=== PATIENT | male | born 1955 | race Caucasian/White ===

== ENCOUNTER 2017-05-09 06:42 | Day surgery (SDC) | payer BC, OTHER ==
[2017-05-01 08:48] VITALS: BMI 29.0
--- NOTE | 2017-05-01 09:19 | PAT Medication Instructions ---
Service Date May 01, 2017. Current Home Medication List Ascorbic Acid (Vitamin C), 500 MG PO QAM Ibuprofen (Advil), 400 MG PO prn Medication Instructions For Your Scheduled Surgery - Hold the following medications 2 weeks prior to surgery: Ibuprofen (Advil), 400 MG PO prn - Hold the following medications the morning of surgery: Ascorbic Acid (Vitamin C), 500 MG PO QAM If you have any questions please call us at [phone] or [phone] or [phone]
[2017-05-01 10:27] LABS: BASO % 0.4 %; BASO ABS # 0.03 K/uL (0-0.2); EOS % 0.6 %; EOS ABS # 0.05 K/uL (0-0.5); HEMATOCRIT 44.4 % (42-52); HEMOGLOBIN 14.7 g/dL (14.0-18.0); IG# 0.02 K/uL (0.00-0.02); LYMPH % 21.2 %; LYMPH ABS # 1.68 K/uL (1.2-3.4); MEAN CELL VOLUME 101.6 fL (80-100); MEAN CORPUSCULAR HEMOGLOBIN 33.6 pg (25-34); MEAN CORPUSCULAR HGB CONC 33.1 g/dl (32-36); MEAN PLATELET VOLUME 11.2 fL (7.4-10.4); MONO % 6.6 %; MONO ABS # 0.52 K/uL (0.11-0.59); NEUT % 70.9 %; NEUT ABS # 5.63 K/uL (1.4-6.5); PLATELET COUNT 218 K/uL (130-400); RED CELL DISTRIBUTION WIDTH CV 12.6 % (11.5-14.5); RED CELL DISTRIBUTION WIDTH SD 46.9 fL (36.4-46.3); WHITE BLOOD COUNT 7.93 K/uL (4.8-10.8)
[2017-05-01 10:32] LABS: CALCIUM 9.2 mg/dl (8.5-10.1); CREATININE 1.04 mg/dl (0.60-1.40); POTASSIUM 5.3 mmol/L (3.5-5.1)
[~2017-05-09] VITALS: Ht 180.3 cm; Wt 96.5 kg
[~2017-05-09 06:42] MED LIST: ASCO500T3 PO; CEFAZOLIN 2000MG IV PUSH 10 ML IV SCH; IBUP-1050 PO; LACTATED RINGER'S 1000ML 1,000 ML IV SCH
[2017-05-09 07:18] VITALS: BP 156/88; PULSE 68; TEMP 36.7; O2SAT 96; Ht 180.3 cm; Wt 96.5 kg
[2017-05-09] MEDS ORDERED: EpHEDrine SULFATE INJ 50 MG/ML AMP IV PRN (07:30)
[2017-05-09] MEDS ORDERED: ONDANSETRON INJ 2 MG/ML 2 ML VIAL IV PRN ×2 (07:30→10:00)
[2017-05-09] MEDS ORDERED: FENTANYL CITRATE INJ 50 MCG/1 ML 2 ML VIAL IV PRN (07:30)
[2017-05-09] MEDS ORDERED: ATROPINE SULFATE 0.1 MG/ML 5ML SYR IV PRN (07:30)
[2017-05-09] MEDS ORDERED: HYDROmorphone INJ 1 MG/ML SYR IV PRN (07:30)
[2017-05-09] MEDS ORDERED: PROPOFOL IV EMULSION 10 MG/ML 20 ML VIAL IV ONE (07:36)
[2017-05-09] MEDS ORDERED: LIDOCAINE HCL 2% 2 ML VIAL (20MG/ML) ONE (07:36)
[2017-05-09] MEDS ORDERED: ROCURONIUM BROMIDE 10 MG/ML 5 ML VIAL IV ONE (07:36)
[2017-05-09] MEDS ORDERED: MIDAZOLAM HCL 1 MG/ML 2ML VIAL ONE (07:37)
[2017-05-09] MEDS ORDERED: FENTANYL CITRATE INJ 50 MCG/1 ML 2 ML VIAL ONE ×2 (07:37→09:12)
[2017-05-09] MEDS ORDERED: BUPIVACAINE 0.5 % 5 MG/1 ML MPF 30ML VIAL ONE (08:22)
--- NOTE | 2017-05-09 08:32 | History & Physical Bridge Note ---
H&P Re-Evaluation Bridge Note: I have examined the patient, reviewed the History & Physical and in the interval since the performance of the History & Physical I have noted the following changes of clinical significance: No changes noted
[2017-05-09] MEDS ORDERED: GLYCOPYRROLATE INJ 0.2 MG/ML VIAL ONE (09:05)
[2017-05-09] MEDS ORDERED: SUCCINYLCHOLINE CHLORIDE 20 MG/ML 10 ML VIAL IV ONE (09:05)
[2017-05-09] MEDS ORDERED: DEXAMETHASONE SOD INJ 4 MG/ML VIAL ONE (09:05)
[2017-05-09] MEDS ORDERED: NEOSTIGMINE METHYLSULFATE 5 MG/5 ML SYR ONE (09:05)
[2017-05-09] MEDS ORDERED: ONDANSETRON INJ 2 MG/ML 2 ML VIAL ONE (09:05)
[2017-05-09] MEDS ORDERED: KETOROLAC TROMETHAMINE 30 MG/ML VIAL ONE (09:05)
--- NOTE | 2017-05-09 09:50 | [facility] Operative Report ---
Operative Report Operative Date May 09, 2017. Pre-Operative Diagnosis Right Inguinal Hernia Post-Operative Diagnosis Right Inguinal Hernia- indirect defect Procedure(s) Performed Laparoscopic Right Inguinal Hernia Repair with Mesh Surgeon Sock Lining Examiner Surgeon(s) Dre Maravilla PA-C Estimated Blood Loss 5 cc Findings used Lg 3DMax mesh small femoral lipoma Specimens none per surgeon Anesthesia gen Complication(s) None Disposition Recovery Room / PACU I attest to the content of the Intraoperative Record and any orders documented therein. Any exceptions are noted below.
--- NOTE | 2017-05-09 09:54 | Discharge Instructions ---
Discharge Instructions Date of Service May 09, 2017. Visit Reason for Visit: Right Inguinal Hernia Discharge Discharge Diagnosis / Problem: Rt inguinal hernia Discharge Goals Goal(s): Decrease discomfort, Improve function, Improve disease control Activity Recommendations Activity Limitations: as noted below Lifting Limitations: no more than 25 pounds Exercise/Sports Limitations: until after follow-up appointment May Resume Sexual Activity: when tolerated Shower/Bathe: tomorrow Driving or Machine Use: resume 3 days after discharge Anesthesia . Post Anesthesia Instructions: If you have had General Anesthesia or IV Sedation: * Do not drive today. * Resume driving when surgeon permits. * Do not make important decisions or sign legal documents today. * Call surgeon for: 1. Temperature elevations greater than 101 degrees F. 2. Uncontrollable pain. 3. Excessive bleeding. 4. Persistent nausea and vomiting. 5. Medication intolerance (nausea, vomiting or rash). * For nausea and vomiting use only clear liquids such as: tea, soda, bouillon until nausea subsides, then gradually increase diet as tolerated. * If you have any concerns or questions, call your surgeon's office. If physician is unavailable and it is an emergency, call 911 or go to the nearest emergency room. . Instructions / Follow-Up Instructions / Follow-Up SPECIAL CARE INSTRUCTIONS: * Cover incisions and change daily for comfort/drainage. May leave uncovered with dermabond * Avoid constipation- may use Senokot S and Milk of magnesia twice daily as directed on the package * May use ibuprofen for pain as tolerated. * Expect some swelling and bruising. Call your doctor if: * Temperature above 101 degrees * Pain not relieved by pain medicine ordered * There is increased drainage or redness from any incision * You have any unanswered questions or concerns [phone]. FOLLOW UP VISIT: If not already scheduled, please call the office for a follow-up visit. for 2 weeks- no sutures to remove OFFICE PHONE NUMBER: Dr. Mclain Office Diet Recommendations Recommended Home Diet: resume previous diet Procedures Procedures Performed: Laparoscopic Right Inguinal Hernia Repair with Mesh Pending Studies Studies pending at discharge: no Work Instructions Return To Work: after follow-up (will need 4-6 weeks recovery) Medical Emergencies . Who to Call and When: Medical Emergencies: If at any time you feel your situation is an emergency, please call 911 immediately. . Non-Emergent Contact Non-Emergency issues call your: Primary Care Provider, Surgeon . . "Provider Documentation" section prepared by lAfredo Mclain. .
[2017-05-09] MEDS ORDERED: CEPH500C2 PO (09:55)
[2017-05-09] MEDS ORDERED: HYDR-5688 PO (09:55)
[2017-05-09] MEDS ORDERED: HYDROCODONE/ACETAMOPHEN 5/325MG TAB PO PRN ×2 (10:00)
--- NOTE | 2017-05-09 10:09 | OPERATIVE REPORT ---
DATE OF OPERATION: 05/09/2017 NAME OF OPERATION: Laparoscopic right inguinal hernia repair with mesh. PREOPERATIVE DIAGNOSIS: Right inguinal hernia. POSTOPERATIVE DIAGNOSIS: Same. STAFF SURGEON: Alfredo Mclain MD. LINSEED OIL PRESS TENDER: Darin Maravilla PA-C. ANESTHESIA: General. DESCRIPTION OF PROCEDURE: The patient was brought in the operating room and placed on the operating table in supine position. Pneumatic stockings, Myles catheter, orogastric tube were placed. His abdomen was prepped and draped in usual fashion. Then, 0.5% plain Marcaine was used to anesthetize the skin and subcutaneous tissue just above the umbilicus and laterally. Incision was made above the umbilicus, carrying dissection down to the fascia, placing a Veress needle producing pneumoperitoneum and placing an 11 mm port. Under visualization, two 5 mm ports were placed, 1 left and right lateral. On inspection, the patient did have an indirect right inguinal hernia. Dissection was carried out from medial to lateral above the defect, taking the peritoneum away from the abdominal wall, identifying the hernia sac and lipoma within the internal ring. These were taken down and also the patient had a small lipoma in the femoral area, which was reduced. At this point, a large mesh 3D max piece of mesh was obtained and placed into the defect. It covered the area very well, secured above the inguinal ligament using absorbable tacks medial to lateral and then the peritoneum brought up over the mesh and secured using the absorbable tacks. Pneumoperitoneum was reduced. All ports were removed. The umbilical defect closed using interrupted 0 Vicryl suture and then the skin reapproximated using subcuticular 4-0 Monocryl and Dermabond. The patient was transferred to recovery room in stable condition. As a note, my children's nursery assistant helped with prepping, draping, entering the abdominal cavity, exposing the hernia, dissecting the hernia free and then closure of the abdominal wounds. I attest to the content of the Intraoperative Record and any orders documented therein. Any exception s are noted below.
--- NOTE | 2017-05-09 10:43 | Anesthesiology Progress Note ---
Anesthesia Post Op Note Date & Time May 09, 2017 at 10:43 Vital Signs Pain Intensity: 0 Vital Signs Past 12 Hours Date Time Temp Pulse Resp B/P (MAP) Pulse Ox O2 Delivery O2 Flow Rate FiO2 05/09/17 10:35 80 16 125/84 95 Room Air 05/09/17 10:25 74 16 129/92 100 Oxymask 10 05/09/17 10:15 79 16 146/89 100 Oxymask 10 05/09/17 10:06 36.5 85 16 158/90 100 Oxymask 10 05/09/17 07:18 36.7 68 16 156/88 (110) 96 Room Air Notes Mental Status: alert / awake / arousable, participated in evaluation Pt Amnestic to Procedure: Yes Nausea / Vomiting: adequately controlled Pain: adequately controlled Airway Patency, RR, SpO2: stable & adequate BP & HR: stable & adequate Hydration State: stable & adequate Anesthetic Complications: no major complications apparent
[2017-05-09 10:50] VITALS: BP 145/92; PULSE 64; TEMP 36.8; O2SAT 95
[2017-05-09 11:22] VITALS: BP 126/78; PULSE 57; TEMP 36.4; O2SAT 97
[2017-05-09 11:50] VITALS: BP 147/95; PULSE 69; TEMP 36.7; O2SAT 96
== END 2017-05-09 11:56 | disposition home or self-care (01) ==
LOC: C.ACU 06:42
PROVIDERS: ATTEND Surgery
DX: K40.90 Unilateral inguinal hernia, without obstruction or gangrene, not specified as recurrent (principal); Z80.0 Family history of malignant neoplasm of digestive organs; Z85.820 Personal history of malignant melanoma of skin; F17.220 Nicotine dependence, chewing tobacco, uncomplicated

== ENCOUNTER 2020-06-17 06:09 | Inpatient (IN) ==
--- NOTE | 2020-06-11 09:40 | Anesthesiology Consultation ---
Date of Service June 11, 2020 Assessment & Plan (1) Encounter for pre-operative examination: Chart Review Chart Review: Acceptable Risk for Surgery (pending 06/16 cardio note and preop Covid testing ) and Patient NOT seen in Pre Admission Testing Pt seeing cardio 06/16/20= will attempt to get cardio note. Per nursing assessment 06/11/2020, pt resides in [facility]. Works for [employer]- travels around [place]- has not worked since 05/27/20. Travels only to medical appts. Wears mask, uses good hand hygiene and socially distances. Denies any known Covid infection in the past 90 days. Scheduled for preop Covid testing 06/09/20= will await results. Right inguinal hernia repair 05/09/2017 = done under [facility] with grade 3 view with MAC #3. ETT #7.5. Atraumatic DL x1. Difficult two person mask. History Surgery Operation Date: 06/17/20 07:45 Proposed Procedures p C4 Corpectomy, Spinal Cord Monitoring - Eyal Payan, Height/Weight Height: 5 ft 11 in Weight: 89.811 kg Allergies Allergy/AdvReac Type Severity Reaction Status Date / Time No Known Allergies Allergy Unknown Verified 06/17/20 06:31 Medications Home Medications Medication Instructions Recorded Confirmed Last Taken ascorbic acid (vitamin C) [Vitamin 1,000 mg PO QAM 05/20/19 06/17/20 06/16/20 07:00 C] aspirin 81 mg PO QAM 01/22/20 06/17/20 06/17/20 05:30 lisinopril 10 mg PO BID #60 tab 01/22/20 06/17/20 06/16/20 07:00 metoprolol tartrate 12.5 mg PO BID 01/22/20 06/17/20 06/17/20 05:30 nitroglycerin 0.4 mg SUBLINGUAL UD PRN 01/22/20 06/17/20 Unknown cyanocobalamin (vitamin B-12) 1,000 mcg PO QAM 05/27/20 06/17/20 06/16/20 07:00 1,000 mcg capsule diphenhydramine-acetaminophen 1 tab PO HS PRN 06/11/20 06/17/20 06/13/20 20:00 [Tylenol PM Extra Strength] ibuprofen 400 mg PO Q6H PRN 06/11/20 06/17/20 06/13/20 20:00 multivitamin 1 tab PO QAM 06/11/20 06/17/20 06/16/20 07:00 Active Medications Generic Name Dose Route Start Last Admin Trade Name Yahaira PRN Reason Stop Dose Admin Acetaminophen 1,000 mg 06/17/20 06:00 06/17/20 06:52 Acetaminophen 500 Mg Tab PO 06/17/20 18:00 1,000 mg PREOP LARRY Administration Celecoxib 200 mg 06/17/20 06:00 06/17/20 06:52 Celebrex 200 Mg Cap PO 06/17/20 18:00 200 mg PREOP LARRY Administration Gabapentin 600 mg 06/17/20 06:00 06/17/20 06:52 Gabapentin 600 Mg Dose PO 06/17/20 18:00 600 mg PREOP LARRY Administration Lactated Ringer's 1,000 mls @ 15 mls/hr 06/17/20 06:00 06/17/20 06:39 Lr IV 06/18/20 05:59 15 mls/hr .Q24H LARRY Administration Past Medical History Medical History Arthritis Asthma HX A CHILD Hypertension Past Family History Family History Mother Heart disease Father CHF (congestive heart failure) Heart disease Family hx of colon cancer Daughter Family history of diabetes mellitus Family/Other Family history of diabetes mellitus Grandmother (Paternal) Family history of diabetes mellitus Past Surgical History Surgical History Cancer SQUAMOUS CELL NOSE-MOHS History of hernia repair X 2 STOP BANG Total 4 Social History Smoking Status: Former smoker Do You Dip or Chew Tobacco: Yes (1 CAN PER 3 DAYS) Smoking End Date: QUIT 30+ YRS AGO Hx Alcohol Use: Yes Alcohol type: beer alcohol intake frequency: 3 or more drinks per day Alcohol Intake Frequency Comment: "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 When compared to EKG from December 18, 2019no significant changes found per cardio. Chest X-Ray Date: 06/09/20 Findings: + NAD 10 mm nodular density overlying the left lung base is suggestive of a nipple shadow. Stress Test Date: 01/09/20 Resting EF: 55-59% Resting LV Function: normal Valvular Disease: no significant valvular disease Stress echo was positive for inducible ischemia. Exercise capacity is average. With stress the apical septum and inferior wall became hypokinetic. Left ventricular ejection fraction increases normally with stress. MPHR 90%. 10 METS achieved. Heart rate response to stress was normal. BP response to stress was hyper tensive. Dyspnea was noted with stress. Stress EKG response showed no evidence of ischemia. Grade 1 diastolic dysfunction. Cardiac Catheterization Date: 01/22/20 LM = no disease LD = mild luminal irregularities but no obstruction. Ramus intermedius = no significant disease. Left circumflex = no disease. RCA = no disease. Overall function EF 55%. Focal hypokinesis of the inferior apex with all other wall segments silver normally. Impression: Right dominant coronary anatomy with minimal coronary atherosclerosis and no obstruction. Focal hypokinesis of the inferior apex with otherwise preserved LV function EF 55 to 60%. Recommend medical therapy.
[~2020-06-17 06:09] MED LIST changes: +ACETAMINOPHEN 500 MG TAB PO SCH; -ASCO500T3 PO; -CEFAZOLIN 2000MG IV PUSH 10 ML IV SCH; +CeleBREX 200 MG CAP PO SCH; +GABAPENTIN 600 MG DOSE PO SCH; -IBUP-1050 PO; -LACTATED RINGER'S 1000ML 1,000 ML IV SCH; +LR 15ML/HR IV SCH; +ceFAZolin 2000MG 2,000 MG/15 ML SYR IV SCH
[2020-06-17] MEDS ORDERED: SUGAMMADEX SODIUM 200 MG/2 ML VIAL IV ONE (06:43)
[2020-06-17] MEDS ORDERED: SUCCINYLCHOLINE 100MG/5ML SYR IV ONE (06:55)
[2020-06-17] MEDS ORDERED: DEXAMETHASONE SOD INJ 4 MG/ML VIAL ONE (06:55)
[2020-06-17] MEDS ORDERED: PROPOFOL IV EMULSION 10 MG/ML 20 ML VIAL IV ONE (06:55)
[2020-06-17] MEDS ORDERED: ONDANSETRON INJ 2 MG/ML 2 ML VIAL ONE (06:55)
[2020-06-17] MEDS ORDERED: ROCURONIUM BROMIDE 10 MG/ML 5 ML VIAL IV ONE (06:55)
[2020-06-17] MEDS ORDERED: LIDOCAINE HCL 2% 2 ML VIAL/AMP(20MG/ML) INFIL ONE (06:55)
[2020-06-17] MEDS ORDERED: HYDROmorphone INJ 2 MG/ML SYR/VIAL ONE (06:56)
[2020-06-17] MEDS ORDERED: SODIUM CHLORIDE 0.9% INJ 10 ML VIAL ONE (06:56)
[2020-06-17] MEDS ORDERED: MIDAZOLAM HCL 1 MG/ML 2ML VIAL ONE (06:56)
[2020-06-17] MEDS ORDERED: KETAMINE 50 MG/5 ML SYRINGE ONE (06:56)
[2020-06-17] MEDS ORDERED: PROPOFOL IV EMULSION 10 MG/ML 100 ML VIAL IV ONE (06:58)
[2020-06-17] MEDS ORDERED: BACITRACIN INJ 50,000 UNIT VIAL ONE (06:58)
--- NOTE | 2020-06-17 07:34 | History & Physical Bridge Note ---
Date of Service June 17, 2020 History & Physical Bridge Note I have examined the patient, reviewed the History & Physical and in the interval since the performance of the History & Physical I have noted the following changes of clinical significance: no changes noted
--- NOTE | 2020-06-17 07:35 | History & Physical Report ---
Date of Service June 17, 2020 Assessment & Plan (1) Cervical spinal stenosis: Admission and Anticipated Discharge Date Admission Date: C4 corpectomy History of Present Illness Chief Complaint: Neck and bilateral arm pain Primary Care Provider: Ann Gutierrez This is a 64-year-old male presents with worsening neck and bilateral arm symptoms after failing course of nonoperative care is here for surgical invention. Allergies Allergy/AdvReac Type Severity Reaction Status Date / Time No Known Allergies Allergy Unknown Verified 06/17/20 06:31 Home Medications Medication Instructions Recorded Confirmed Type ascorbic acid (vitamin C) [Vitamin 1,000 mg PO QAM 05/20/19 06/17/20 History C] aspirin 81 mg PO QAM 01/22/20 06/17/20 History lisinopril 10 mg PO BID #60 tab 01/22/20 06/17/20 Rx metoprolol tartrate 12.5 mg PO BID 01/22/20 06/17/20 History nitroglycerin 0.4 mg SUBLINGUAL UD PRN 01/22/20 06/17/20 History cyanocobalamin (vitamin B-12) 1,000 mcg PO QAM 05/27/20 06/17/20 History 1,000 mcg capsule diphenhydramine-acetaminophen 1 tab PO HS PRN 06/11/20 06/17/20 History [Tylenol PM Extra Strength] ibuprofen 400 mg PO Q6H PRN 06/11/20 06/17/20 History multivitamin 1 tab PO QAM 06/11/20 06/17/20 History Past Med/Surg History Medical History Arthritis Asthma HX A CHILD Hypertension Surgical History Cancer SQUAMOUS CELL NOSE-MOHS History of hernia repair X 2 Family History Mother Heart disease Father CHF (congestive heart failure) Heart disease Family hx of colon cancer Daughter Family history of diabetes mellitus Family/Other Family history of diabetes mellitus Grandmother (Paternal) Family history of diabetes mellitus Social History Smoking Status: Former smoker Age Started Using Tobacco: 20; Age Quit Using Tobacco: 24; Smoking End Date: QUIT 30+ YRS AGO; Number of Years Since Quit: 40; Second Hand Exposure: Yes (FAMILY SMOKED/SMOKES); Do You Dip or Chew Tobacco: Yes (1 CAN PER 3 DAYS); Hx Alcohol Use: Yes Alcohol type: beer Alcohol Intake Frequency Comment: up to 3-4 beers per day Hx Substance Use: No Preferred Language: Vietnamese Communication Ability: Effective Poultry Grader Required: No Beliefs That Will Affect Care: None Current Living Situation: Spouse current occupational status: employed current occupation: airplane electrician/rehab technician for the [employer] Other Information That Helps Us Care for You: No other: former [employer] and [employer] worker Feels Safe at Home: Yes Safety Concerns: Feels Safe At This Time Assistive Devices: Glasses Physical Exam Physical Exam: Patient is alert and oriented Heart regular rhythm Lungs clear to auscultation Results & Data ([facility]) Vital Signs (Past 12 Hours) Vital Signs Temp Pulse Resp BP Pulse Ox 06/17/20 06:38 37 C 76 20 151/95 H 98
[2020-06-17] MEDS ORDERED: ePHEDrine sulfate 50 MG/ML AMP IV PRN (07:48)
[2020-06-17] MEDS ORDERED: ATROPINE SULFATE 0.1 MG/ML 10ML SYR IV PRN (07:48)
[2020-06-17] MEDS ORDERED: ONDANSETRON INJ 2 MG/ML 2 ML VIAL IV PRN ×2 (07:48→11:41)
[2020-06-17] MEDS ORDERED: fentaNYL citrate 100 MCG/2 ML VIAL IV PRN (07:48)
[2020-06-17] MEDS ORDERED: HYDROmorphone INJ 2 MG/ML SYR/VIAL IV PRN (07:48)
[2020-06-17] MEDS ORDERED: GLYCOPYRROLATE 0.2 MG/ML VIAL ONE (08:28)
[2020-06-17] MEDS ORDERED: FLOSEAL HEMOSTATIC MATRIX 10ML TOP ONE (09:37)
--- NOTE | 2020-06-17 09:48 | Operative Report ---
Post Operative Report Pre & Post Diagnosis Operation Date: 06/17/20 07:45 Pre-Op Diagnosis: Cervical spinal stenosis with myeloradiculopathy Post-Op Diagnosis: Same I identified the patient and participated in the time-out.: Yes Procedure Operation Date: 06/17/20 07:45 Actual Procedures #1 anterior cervical corpectomy with bilateral foraminotomies C4. #2 anterior cervical arthrodesis C3-C5. #3 placement of peek cage 23 mm in height C3-C5. #4 placement locally harvested morselized autograft combined with DBM and interbody cage. #5 application of 5 complete screws from C3-C5. Surgeon Eyal Payan, DO Digital Director Jairo Solomon Estimated Blood Loss 10 Findings Consistent with Post-Op Diagnosis Specimens None Indications This is a 64-year-old male who presents the office with myeloradiculopathy and is here for urgent decompression fusion. Description of Procedure Patient was met with identified informed consent obtained. Patient was then taken to the operative suite underwent ablation placed in supine position chest table top Josue frame. All bony prominences well-padded eyes inspected to ensure no external pressure placed upon. This point the anterior cervical spine was prepped and draped in a sterile fashion. The assistance of fluoroscopy did not find the C4 vertebral body. Transverse incision was placed in the right anterior aspect of the cervical spine overlying his region. Sharp dissection with assistance of bipolar electrocautery performed down to and exposing the anterior cervical spine fromC3-C5. Associated retractors placed. Then performed a complete discectomy out to the uncovertebral joints bilaterally at C3-4 and C4-5. A complete corpectomy of C4 over the was then performed including removal of all posterior annular fibers longitudinal ligament bilateral foraminotomies performed. Endplates were then burred to subcortical being bone and a 23 mm cyst peek cage filled with locally harvested morselized autograft and DBM tapped in position. Distracting apparatus was removed and a 5 complete screws applied with the assistance of fluoroscopy. Incision was then copiously irrigated explored to ensure no damage to surrounding structures of any bleeding. 10 round SASHA drain inserted. The incision was then closed with 2 Vicryl in a fashion of 4 Monocryl for final skin closure. Steri-Strip sterile dressings placed. Patient will continue PACU stable addition. Please note spinal cord monitoring was utilized that the procedure no changes noted. Lastly Jairo Solomon was present at the entire surgery involved in patient positioning complex portions of the surgery and final skin closure. I attest to the content of the Intraoperative Record and any orders documented therein. Any exceptions are noted below.
--- NOTE | 2020-06-17 10:42 | Fluoroscopy Report ---
FL cervical 2-3V CLINICAL HISTORY: C4 CORPECTOMY COMPARISON STUDY: None. FLUOROSCOPY TIME: 8 seconds. FINDINGS: 2 fluoroscopic spot images of the cervical spine demonstrate anterior cervical discectomy a nd fusion from C3 through C5 with a C4 corpectomy and bone graft. The hardware appears intact. An end otracheal tube is noted. IMPRESSION: Fluoroscopy provided for C3-C5 ACDF. ACT 112: Negative or not required by law. Electronically signed by: Lukasz Clark M.D. 06/17/2020 10:41 AM
--- NOTE | 2020-06-17 11:11 | Anesthesiology Progress Note ---
Date of Service June 17, 2020 Anesthesia Post Procedure Vital Signs Vital Signs: Temp Pulse Pulse Resp BP Pulse Ox 06/17/20 11:10 65 16 151/79 H 98 06/17/20 11:00 82 20 149/91 H 97 06/17/20 10:50 36.1 C L 61 15 140/76 97 06/17/20 10:40 64 12 170/88 H 98 06/17/20 10:30 75 16 169/73 H 97 06/17/20 10:20 76 12 155/84 H 98 06/17/20 10:12 36.0 C L 82 15 164/90 H 98 06/17/20 06:38 37 C 76 20 151/95 H 98 Pain Intensity Bilateral Hip: Pain Intensity: 3 Transfer of Care Handoff Completed per policy Notes Mental Status: alert / awake / arousable and participated in evaluation Patient Amnestic to Procedure: Yes Nausea / Vomiting: adequately controlled Pain: adequately controlled Airway Patency, RR, SpO2: stable & adequate BP & HR: stable & adequate Hydration State: stable & adequate Anesthetic Complications: no major complications apparent and Pt Satisfied with anesthetic care
[2020-06-17] MEDS ORDERED: DO NOT ADMINISTER FLU VACCINE PRN (11:41)
[2020-06-17] MEDS ORDERED: LORazepam 0.5 MG TAB PO PRN (11:41)
[2020-06-17] MEDS ORDERED: RACEPINEPHRINE 2.25% NEBU SOLN 0.5 ML VIAL INH PRN (11:41)
[2020-06-17] MEDS ORDERED: ALUMINUM/MAGNESIUM SUSP 30 ML UDC PO PRN (11:41)
[2020-06-17] MEDS ORDERED: MAGNESIUM HYDROXIDE SUSP 30 ML UDC PO PRN (11:41)
[2020-06-17] MEDS ORDERED: ACETAMINOPHEN 1,000 MG/100 ML VIAL IV PRN (11:41)
[2020-06-17] MEDS ORDERED: LORazepam 0.5 MG/1 ML VIAL IV PRN (11:41)
[2020-06-17] MEDS ORDERED: ONDANSETRON 4 MG OD TAB PO PRN (11:41)
[2020-06-17] MEDS ORDERED: DEXAMETHASONE SOD PHOSPHATE 8 MG in SYRINGE 0 ML IV PRN (11:41)
[2020-06-17] MEDS ORDERED: oxyCODONE HCL IR 5 MG TAB (IMMEDIATE RELEASE) PO PRN (11:41)
[2020-06-17] MEDS ORDERED: SOD PHOSPHATE/SOD BIPHOSPHATE ENEMA 132 ML BTL PR PRN (11:41)
[2020-06-17] MEDS ORDERED: ACETAMINOPHEN 500 MG TAB PO PRN (11:41)
[2020-06-17] MEDS ORDERED: NALOXONE HCL 0.4 MG/1 ML VIAL/CARP IV PRN (11:41)
[2020-06-17] MEDS ORDERED: hydrOXYzine HCl 25 MG TAB PO PRN (11:41)
[2020-06-17] MEDS ORDERED: DO NOT ADMINISTER PNEUMOCOCCAL VACCINE PRN (11:41)
[2020-06-17] MEDS ORDERED: NITROGLYCERIN SL 0.4 MG/TAB TAB SL PRN (11:41)
[2020-06-17] MEDS ORDERED: PROMETHAZINE HCL 12.5 MG in SODIUM CHLORIDE 0.9% 50 ML IV PRN (11:41)
[2020-06-17] MEDS ORDERED: HYDROmorphone INJ 0.5 MG/0.5 ML SYR IV PRN (11:41)
[2020-06-17] MEDS ORDERED: HYDROmorphone INJ 1 MG/ML SYRINGE IV PRN (11:41)
[2020-06-17] MEDS ORDERED: METOCLOPRAMIDE HCL INJ 5 MG/ML 2 ML VIAL IV PRN (11:41)
[2020-06-17] MEDS ORDERED: traMADol HCL 50 MG TABLET PO PRN (11:41)
[2020-06-17] MEDS ORDERED: diphenhydrAMINE Capsule 25 MG CAP PO PRN (11:41)
[2020-06-17] MEDS ORDERED: FAMOTIDINE 20 MG TAB PO PRN (11:41)
[2020-06-17] MEDS: SODIUM CHLORIDE 0.9% 1000ML 1,000 ML IV SCH ×2 (12:09→21:43)
--- NOTE | 2020-06-17 13:10 | Hospitalist Consultation ---
Date of Consultation June 17, 2020 Assessment & Plan (1) S/P spinal surgery: This is a 64yo M with a PMH of hypertension and brachial plexopathy with right upper extremity weakness who is POD#0 s/p ACDF with bilateral foraminotomies by Dr. Payan. POD#0 s/p ACDF with bilateral foraminotomies by Dr. Payan Pt is doing well post-operatively Per ortho for pain control, wound care, anticoagulation and activities Monitor H&H (pre-op hgb 13.4), continue incentive spirometry, PT/OT when ap propriate (2) Hypertension: BP 149/95. Optimize pain control. Continue lisinopril, metoprolol tartrate 12.5 BID (3) Alcohol use: Endorses 3-4 beers nightly, last drink 2 evenings ago. Denies history of etoh withdrawal. Will order AWSS protocol to be thorough with at risk withdrawal PRN ativan Continue MV. Should be started on Thiamine supplement with low pre-op labwork (4) Brachial plexopathy: (5) Weakness of right upper extremity: [place] [facility] [place]CP: Brenda ([place]) Dispo: Per primary service Patient seen in collaboration with Dr. Dejesus. Please see addendum. Supervising Physician Co-Signing Physician Notes Attending addendum: The patient was seen and examined in medical floor He is status post C4 corpectomy and has been doing fine He denies any other significant symptoms On examination Hemodynamically stable with blood pressure a little upper side of 149/95 Chestclear to auscultate bilaterally HeartS1-S2, regular, no murmur appreciated Abdomen-benign, nontender, bowel sounds present Extremities-negative for any edema His labs, imaging studies and EKG prior to surgery reviewed He has been drinking about 3-4 beers a day and may go into withdrawal symptoms after about 48 to 72 hours He was prescribed Ativan as needed for that Agree with assessment and plan as outlined above by MAXI Palmer DR History of Present Illness Reason for Consultation: post op med mgmt Attending Physician: Eyal Payan, DO History of Present Illness This is a 64yo M with a PMH of hypertension and brachial plexopathy with right upper extremity weakness who is POD#0 s/p ACDF with bilateral foraminotomies by Dr. Payan. Feels well postoperatively with minimal surgical site discomfort. Denies any new paresthesias or weakness in upper extremities. However, has significant RUE weakness that he developed 1 year ago and has been following with Dr. Guardado of neurology for this. Has been diagnosed with a brachial plexopathy and has been undergoing additional imaging over the past few months. Denies any fever, chills, headache, lightheadedness, chest pain, shortness of breath, nausea, vomiting, abdominal pain, dysuria, diarrhea or constipation. Uses smokeless tobacco and drinks 3-4 beers nightly. Last drink 2 days ago. Allergies Allergy/AdvReac Type Severity Reaction Status Date / Time No Known Allergies Allergy Unknown Verified 06/17/20 06:31 Home Medications Medication Instructions Recorded Confirmed Type ascorbic acid (vitamin C) [Vitamin 1,000 mg PO QAM 05/20/19 06/17/20 History C] aspirin 81 mg PO QAM 01/22/20 06/17/20 History lisinopril 10 mg PO BID #60 tab 01/22/20 06/17/20 Rx metoprolol tartrate 12.5 mg PO BID 01/22/20 06/17/20 History nitroglycerin 0.4 mg SUBLINGUAL UD PRN 01/22/20 06/17/20 History cyanocobalamin (vitamin B-12) 1,000 mcg PO QAM 05/27/20 06/17/20 History 1,000 mcg capsule diphenhydramine-acetaminophen 1 tab PO HS PRN 06/11/20 06/17/20 History [Tylenol PM Extra Strength] ibuprofen 400 mg PO Q6H PRN 06/11/20 06/17/20 History multivitamin 1 tab PO QAM 06/11/20 06/17/20 History oxycodone 5 mg PO Q6H PRN #15 tab 06/17/20 Rx tramadol 50 mg PO Q6H PRN #15 tab 06/17/20 Rx Patient History Medical History Alcohol use Arthritis Asthma HX A CHILD Hypertension Surgical History Cancer SQUAMOUS CELL NOSE-MOHS History of hernia repair X 2 Family History Mother Heart disease Father CHF (congestive heart failure) Heart disease Family hx of colon cancer Daughter Family history of diabetes mellitus Family/Other Family history of diabetes mellitus Grandmother (Paternal) Family history of diabetes mellitus Social History Smoking Status: Former smoker Age Started Using Tobacco: 20; Age Quit Using Tobacco: 24; Smoking End Date: QUIT 30+ YRS AGO; Number of Years Since Quit: 40; Second Hand Exposure: Yes (FAMILY SMOKED/SMOKES); Do You Dip or Chew Tobacco: Yes (1 CAN PER 3 DAYS); Hx Alcohol Use: Yes Alcohol type: beer Alcohol Intake Frequency Comment: up to 3-4 beers per day Hx Substance Use: No Preferred Language: Vietnamese Communication Ability: Effective 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 Physical Exam Physical Exam: General Appearance: WD/WN, vitals as above, NAD, sitting up in bed, pleasant, conversing easily Head: normocephalic, atraumatic Eyes: normal inspection, PERRL, conjunctivae normal, anicteric sclerae ENT: external ear and nose normal, oropharynx normal Neck: Surgical dressing c/d/i. SASHA drain visualized. Normal visual inspection, trachea midline, no thyromegaly Respiratory: normal respiratory effort, lungs clear to auscultation, no wheeze, rales, rhonchi. No accessory muscle use Cardiovascular: regular rate, rhythm, no murmur, normal peripheral pulses, no BLE edema Chest: normal inspection of chest Abdomen/GI: normal bowel sounds, soft, nontender, no hepatosplenomegaly Extremities/Musculoskeletal: no cyanosis or clubbing, INDIO and BLE motor strength 5/5. RUE 4/5 motor strength (chronic) Neurologic: PERRL, EOMI, accommodation nl, no face palsy, no dysarthria, CN's II-XI intact bilaterally and moves all extremities Psychiatric: A+Ox3, euthymic affect Skin: no rashes, normal color, warm/dry Results & Data Results & Data ([facility]) Vital Signs (Past 12 Hours) Vital Signs Temp Pulse Pulse Pulse Resp BP Pulse Ox 06/17/20 12:15 89 16 95 06/17/20 11:20 57 L 14 141/93 H 98 06/17/20 11:10 65 16 151/79 H 98 06/17/20 11:00 82 20 149/91 H 97 06/17/20 10:50 36.1 C L 61 15 140/76 97 06/17/20 10:40 64 12 170/88 H 98 06/17/20 10:30 75 16 169/73 H 97 06/17/20 10:20 76 12 155/84 H 98 06/17/20 10:12 36.0 C L 82 15 164/90 H 98 06/17/20 06:38 37 C 76 20 151/95 H 98 Laboratory Results Pre-op hgb (05/27/20): 13.4
[2020-06-17] MEDS: DEXAMETHASONE SOD PHOSPHATE 6 MG in SYRINGE 0 ML IV SCH ×2 (14:45→20:19)
[2020-06-17] MEDS ORDERED: LORazepam 1 MG/2 ML VIAL IV PRN (15:58)
[2020-06-17] MEDS: ceFAZolin 2000MG 2,000 MG/15 ML SYR IV SCH ×2 (16:12→22:19)
[2020-06-17] MEDS: METOPROLOL TARTRATE 25 MG TAB PO SCH (20:19)
[2020-06-17] MEDS: lisinopril 10 MG TAB PO SCH (20:19)
[2020-06-17] MEDS ORDERED: DOCUSATE SODIUM/SENNA 50/8.6MG TAB PO SCH (21:00)
[2020-06-18] MEDS: DEXAMETHASONE SOD PHOSPHATE 6 MG in SYRINGE 0 ML IV SCH (06:21)
[2020-06-18 06:31] LABS: Hematocrit (blood only) 40.3 % (42-52); Hemoglobin 13.5 g/dL (14.0-18.0); Mean Corpuscular Hgb Conc 33.5 g/dL (32-36); Mean Corpuscular Volume 101.5 fL (80-100); Mean Platelet Volume 11.2 fL (7.4-10.4); Platelet Count 221 K/uL (130-400); RDW Coefficient of Variation 12.6 % (11.5-14.5); RDW Standard Deviation 46.5 fL (36.4-46.3); Red Blood Count 3.97 M/uL (4.7-6.1); White Blood Count 11.55 K/uL (4.8-10.8)
[2020-06-18 06:57] LABS: BUN Creatinine Ratio 10.1 (10-20); Calcium 8.9 mg/dl (8.5-10.1); Creatinine Clr Calc Pharmacy 82.4 ml/min; Est GFR (African American) 85.5; Est GFR (Non-African American) 73.8; Potassium 4.1 mmol/L (3.5-5.1)
[2020-06-18] MEDS: lisinopril 10 MG TAB PO SCH (08:28)
[2020-06-18] MEDS: METOPROLOL TARTRATE 25 MG TAB PO SCH (08:29)
[2020-06-18] MEDS ORDERED: ASPIRIN 81 MG ECTAB PO SCH (09:00)
[2020-06-18] MEDS ORDERED: THIAMINE HCL 100 MG TAB PO SCH (09:00)
[2020-06-18] MEDS ORDERED: ASCORBIC ACID 500 MG TAB PO SCH (09:00)
[2020-06-18] MEDS ORDERED: CYANOCOBALAMIN 500 MCG TABLET (VITAMIN B-12) PO SCH (09:00)
[2020-06-18] MEDS ORDERED: MULTIVITAMIN TAB PO SCH (09:00)
[2020-06-18] MEDS ORDERED: POLYETHYLENE (MIRALAX) 17 GM PACK PO SCH (09:49)
--- NOTE | 2020-06-18 10:59 | Discharge Summary ---
Date of Service June 18, 2020 Admission HPI Per Admitting Provider This is a 64-year-old male presents with worsening neck and bilateral arm symptoms after failing course of nonoperative care is here for surgical invention. Principal Diagnosis Cervical spinal stenosis with myeloradiculopathy Discharge Data Allergies Allergy/AdvReac Type Severity Reaction Status Date / Time No Known Allergies Allergy Unknown Verified 06/17/20 06:31 Consultations 06/17/20 11:41 Consult Hospitalist Routine Procedures Performed Operation Date: 06/17/20 07:45 Actual Procedures p C4 Corpectomy, Spinal Cord Monitoring(Not Applicable) - Eyal Payan DO Ordered Studies 06/17/20 07:45 FL cervical 2-3V Routine FL fluoroscopy <1hr Routine Hospital Course (1) Cervical spinal stenosis: Patient underwent anterior cervical corpectomy tolerated. No orthopedic for postoperative. Postop day #1 was swallowing well no hoarseness. Arm symptoms improving. SASHA drain decreasing appropriately. Socially discharged home. Discharge orders instructions from the chart for further review. Total Time Total Time Spent Total Time Spent (In Minutes): 20 minutes Discharge Plan Discharge Items Patient Disposition: Home - Self-Care Reason For Visit: Radiculopathy, Cervical Region Discharge Diagnosis: Cervical spinal stenosis with myeloradiculopathy Activity: As commented below Non-emergency contact: Primary Care Provider Call non-emergency contact if: you have any medication questions Follow-up/Referrals: Ann Gutierrez C.RKerrieNKerrieP. [Primary Care Provider] - Diet: Regular Addtl Attending Provider Instructions: ACTIVITY RECOMMENDATIONS: SELF CARE INSTRUCTIONS AFTER CERVICAL FUSIONS 1. No smoking. Smoking drastically decreases the chance of a solid fusion. 2. No bending, lifting more than 5 pounds, or twisting (roll like a log when turning in bed). 3. You may shower 3 days after surgery. Thoroughly dry wound. Do not soak in the tub. 4. Cervical collar: Must be worn at all times including sleeping. You may remove the brace only to bath, eat and if you are sitting in a recliner. 5. Please walk as much as you can for exercise. Gradually increase the distance that you walk as your endurance increases. SPECIAL CARE INSTRUCTIONS: VERY IMPORTANT TO READ AND REVIEW A. Do not take any anti-inflammatory medications (i.e. Indocin, Advil, Aspirin, Naprosyn, Aleve, Motrin, etc.) as these may inhibit the chance of a solid fusion. Tylenol is okay to take. B. Your surgical incision has been closed with a cosmetic suture under the skin that will dissolve in about 6 weeks. In 14 days, you can use a pair of clean scissors and cut the suture that is left outside of the skin at the ends of your incision. C. Complications are uncommon, but please contact us if you have any signs or symptoms of: 1. wound infection (fever higher than 102.5 degrees F, redness, separation of wound, drainage, or increasing pain from the incision) 2. blood clots in legs (pain, swelling, redness and warmth in legs) 3. urinary tract infection (fever higher than 102.5 degrees, burning upon urination or increased frequency of urination) 4. nerve problems (inability to walk on your toes or heels, numbness, loss of bowel or bladder control) 5. any other symptoms that concern you. D. Please call the office at if you have any concerns or questions about your operation or recovery. MANAGING PAIN AFTER SPINAL SURGERY 1. Narcotic medication is intended for short-term use and will be provided for surgical pain. Surgical pain usually lasts for a period of 4-6 weeks. Narcotic medication includes Percocet, Vicodin, Darvocet, Tylenol #3 or Lortab. 2. Longer-term pain is more appropriately treated with non-narcotic medication such as Tylenol ES. 3. Muscle spasm is not appropriately treated with narcotics. Muscle relaxers such as Soma, Flexeril or Skelaxin can be used along with Tylenol ES. 4. Remember that we all live with some "aches and pains". This is not unusual or uncommon after an injury or as we get older. 5. We will provide appropriate medication within the normal guidelines of their prescribed use. We will also be very cautious and aware of potential abuse and extended duration of patients' medication needs. 6. Please allow 2-3 days to process refills. Prescriptions will not be mailed but must be picked up at the office. FOLLOW UP VISIT: Keep your scheduled follow-up appointment. Any questions, please call the office at . Pending Studies at Discharge: No Stand-Alone Forms: [place] [employer], Smoking Cessation Medications and DC Order Prescriptions: New tramadol 50 mg tablet 50 mg PO Q6H PRN (Reason: pain, moderate) Qty: 15 RF: 0 oxycodone 5 mg tablet 5 mg PO Q6H PRN (Reason: pain, severe) Qty: 15 RF: 0 Continued cyanocobalamin (vitamin B-12) 1,000 mcg capsule 1,000 mcg PO QAM RF: 0 multivitamin Tablet 1 tab PO QAM RF: 0 diphenhydramine-acetaminophen [Tylenol PM Extra Strength] 25-500 mg Tablet 1 tab PO HS PRN (Reason: Sleep) RF: 0 ascorbic acid (vitamin C) [Vitamin C] 500 mg Tablet 1,000 mg PO QAM RF: 0 nitroglycerin 0.4 mg Tablet, Sublingual 0.4 mg sublingual UD PRN (Reason: Chest Pain) RF: 0 aspirin 81 mg Tablet,Chewable 81 mg PO QAM RF: 0 metoprolol tartrate 25 mg Tablet 12.5 mg PO BID RF: 0 lisinopril 10 mg tablet 10 mg PO BID Qty: 60 RF: 0 Discontinued ibuprofen 200 mg Capsule 400 mg PO Q6H PRN (Reason: Pain) RF: 0 Discharge Orders: Discharge Order (Routine); Ordered 06/18/20 Ordered By: Eyal Payan Admission Data Admit Date/Time: 06/17/20 10:28 Attending Provider: Eyal Payan Admit Provider: Eyal Payan Primary Care Provider: Ann Gutierrez Other Providers: Dylon Causey
--- NOTE | 2020-06-18 14:01 | Hospitalist Progress Note ---
Date of Service June 18, 2020 Assessment & Plan (1) S/P spinal surgery: Patient is a 64 yr male with H/O hypertension and brachial plexopathy with right upper extremity weakness who had ACDF with bilateral foraminotomies by Dr. Payan. Cervical spinal stenosis with myeloradiculopathy S/P anterior cervical corpectomy POD #1 Tolerating diet Pain control, wound care, DVT prophylaxis as per primary team Appreciate surgery help Needs follow-up with Dr. Payan as outpatient (2) Hypertension: Continue lisinopril, metoprolol tartrate Monitor (3) Alcohol use: No signs of alcohol withdrawal currently Continue thiamine, folic acid Monitor for withdrawal (4) Brachial plexopathy: (5) Weakness of right upper extremity: [place] [facility] [place]CP: Brenda Dean) Dispo: Per primary service Admission and Anticipated Discharge Date Admission Date: June 17, 2020 Subjective Patient is seen and examined at bedside States having minimal neck discomfort at site of surgery Had bowel movement today Denies chest pain, dyspnea, dizziness, nausea, abdominal pain Offers no other complaints Review of Systems Review of Systems: All systems reviewed & are unremarkable except as noted in HPI & below Physical Exam Physical Exam: Physical Exam: Vitals signs as noted above General Appearance:Moderately built and nourished, no apparent distress Head: normocephalic, Atraumatic Neck: Surgical site in dressing anteriorly,+ drain Eyes: normal inspection, EOMI Neck: supple, Trachea midline Respiratory/Chest: Normal breath sounds, CTA Cardiovascular: S1, S2, No murmur Abdomen/GI:Soft, Non tender, Bowel sounds present Extremities/Musculoskelatal:normal inspection, no edema Neurologic/Psych:AAOX3, grossly no focal neurological deficits Skin: normal color, warm Results & Data Results & Data ([facility]) Vital Signs (Past 12 Hours) Vital Signs Temp Pulse Pulse Resp BP Pulse Ox 06/18/20 11:17 36.7 C 57 L 91 H 17 154/80 H 96 06/18/20 11:15 78 16 99 06/18/20 08:28 91 H 17 154/80 H 96 06/18/20 07:30 77 16 96 06/18/20 06:18 36.7 C 85 18 149/91 H 99 06/18/20 04:16 36.6 C 78 16 133/80 93 06/18/20 03:28 84 16 93 06/18/20 02:25 36.6 C 81 14 142/80 H 93 Laboratory Results Short CBC 06/18/20 Range/Units 05:59 WBC 11.55 H (4.8-10.8) K/uL Hgb 13.5 L (14.0-18.0) g/dL Hct 40.3 L (42-52) % Plt Count 221 (130-400) K/uL BMP 06/18/20 05:59 Sodium 138 Potassium 4.1 Chloride 103 Carbon Dioxide 29 BUN 11 Creatinine 1.06 Glucose 164 H Calcium 8.9
[2020-06-19] MEDS ORDERED: FOLIC ACID 1 MG TAB PO SCH (09:00)
[2020-06-19] MEDS ORDERED: bisacodyL 10 MG SUPP PR PRN (09:49)
== END 2020-06-18 12:56 | disposition home or self-care (01) | DRG 472 ==
LOC: ASU 06:09 → 3E 10:28